=== PATIENT | female | born 1975 | race Two or more races ===

== ENCOUNTER 2019-02-20 11:15 | Emergency (ER) | payer OTHER ==
[~2019-02-20] VITALS: Ht 167.6 cm; Wt 104.3 kg
[2019-02-20] MEDS ORDERED: PROFERRIN-FORT1 EACH (11:37)
[2019-02-20] MEDS ORDERED: CABERGOLINE0.5 MG (11:38)
[2019-02-20] MEDS ORDERED: GIANVI 3 MG-0.1 EACH (11:39)
== END 2019-02-21 06:50 ==
LOC: ER 11:15
DX: N93.8 Other specified abnormal uterine and vaginal bleeding (principal); D64.89 Other specified anemias; D25.9 Leiomyoma of uterus, unspecified
CPT/HCPCS: 36430 ×2; 76830; 86904 ×2; 86922 ×2; P9021 ×2

== ENCOUNTER 2019-03-15 18:41 | Emergency (ER) | payer OTHER ==
[~2019-03-15] VITALS: Ht 167.6 cm; Wt 102.1 kg
[~2019-03-15 18:41] MED LIST: CABERGOLINE0.5 MG; GIANVI 3 MG-0.1 EACH; PROFERRIN-FORT1 EACH
[2019-03-15] MEDS ORDERED: CITALOPRAM HBR20 MG (18:58)
== END 2019-03-15 22:23 | disposition home or self-care (01) ==
LOC: ER 18:41
DX: J40 Bronchitis, not specified as acute or chronic (principal); D25.9 Leiomyoma of uterus, unspecified; F06.4 Anxiety disorder due to known physiological condition

== ENCOUNTER 2019-03-23 07:42 | Outpatient (CLI) | payer OTHER ==
[~2019-03-23 07:42] MED LIST changes: +CITALOPRAM HBR20 MG
== END 2019-03-23 07:53 | disposition home or self-care (01) ==
LOC: RAD 07:42
DX: R07.89 Other chest pain (principal)

== ENCOUNTER 2019-03-24 15:53 | Inpatient (IN) | payer OTHER ==
[~2019-03-24] VITALS: Ht 167.6 cm; Wt 99.8 kg
[2019-03-26] MEDS ORDERED: CITALOPRAM20 MG/10 M (15:27)
[2019-03-26] MEDS ORDERED: CELEXA20 MG (15:28)
[2019-03-26] MEDS ORDERED: LOPRESSOR25 MG (15:29)
== END 2019-04-04 11:33 | disposition home or self-care (01) | DRG 742 ==
LOC: O/R 04-01 05:17 → OB/GYN 04-01 05:17 → SURG 04-01 12:45 → OB/GYN 04-01 13:28
PROVIDERS: ADMIT Obstetrics & Gynecology
PROC: 0UT90ZZ Resection of Uterus, Open Approach (ICD-10-PCS; principal; 2019-04-01 07:00)
DX: D25.1 Intramural leiomyoma of uterus (principal); D62 Acute posthemorrhagic anemia; D25.0 Submucous leiomyoma of uterus; D25.2 Subserosal leiomyoma of uterus; N72 Inflammatory disease of cervix uteri; N93.8 Other specified abnormal uterine and vaginal bleeding

== ENCOUNTER 2019-04-21 17:17 | Emergency (ER) | payer OTHER ==
[~2019-04-21] VITALS: Ht 167.6 cm; Wt 97.5 kg
[~2019-04-21 17:17] MED LIST changes: +CELEXA20 MG; +CITALOPRAM20 MG/10 M; +LOPRESSOR25 MG
== END 2019-04-21 21:48 | disposition home or self-care (01) ==
LOC: ER 17:17
DX: M62.838 Other muscle spasm (principal); R51 Headache

== ENCOUNTER 2021-06-02 15:51 | Emergency (ER) | payer OTHER ==
[~2021-06-02] VITALS: Ht 152.4 cm; Wt 102.1 kg
== END 2021-06-02 18:02 | disposition home or self-care (01) ==
LOC: ER 15:51
DX: T78.1XXA Other adverse food reactions, not elsewhere classified, initial encounter (principal); F41.8 Other specified anxiety disorders; R00.0 Tachycardia, unspecified; I10 Essential (primary) hypertension; R21 Rash and other nonspecific skin eruption